=== PATIENT | female | born 1980 | race Caucasian/White ===

== ENCOUNTER 2019-03-30 09:55 | Emergency (ER) | payer OTHER ==
[~2019-03-30] VITALS: Ht 154.9 cm; Wt 59.4 kg
[2019-03-30 10:01] VITALS: BP 110/94
--- NOTE | 2019-03-30 10:05 | NUR ---
PT AMBULATED TO ER BED 07
--- NOTE | 2019-03-30 10:08 | NUR ---
ER AT BEDSIDE
--- NOTE | 2019-03-30 10:08 | NUR ---
38 Y/O F PRESENTS TO ER C/O SHORTNESS OF BREATH SINCE LAST NIGHT. PT IN TRIPOD POSITION. RESPIRATIONS ARE EVEN AND LABORED. BREATHE SOUNDS BILATERALLY WHEEZING THROUGHOUT. AUDIBLE WHEEZING NOTED. O2 SATURATION 99% ON RA. ALLERGIES: NKA MED HX: ASTHMA. SAFETY MEASURES IN PLACE. WAITING FOR ERMD TO EVALUATE PT.
--- NOTE | 2019-03-30 10:08 | NUR ---
RESPIRATORY CALLED FOR BREATHING TREATMENT
--- NOTE | 2019-03-30 10:12 | NUR ---
Mary valero in EDM - 03/30/19 at 1021 by ALIA2 ERMD AT BEDSIDE EVALUATING PT.
[2019-03-30] MEDS ORDERED: predniSONE 20 MG TAB PO ONE (10:15)
[2019-03-30] MEDS ORDERED: IPRATROPIUM 0.02% 0.5 MG/2.5 ML NEBU INH ONE (10:15)
[2019-03-30] MEDS ORDERED: ALBUTEROL 0.083% 2.5 MG/3 ML NEBU INH ONE (10:15)
--- NOTE | 2019-03-30 10:17 | NUR ---
ADMITTING DX: SOB HX: PATIENT STATES ASTHMA LOC AWAKE AND ALERT RESPONSIVE TO [employer] VERBAL COMMANDS HFW POSITION EDUCATION PROVIDED TO PATIENT WITH ACKNOWLEDGEMENT ON HHN THERAPY AND RESPIRATORY DRUGS FOREMENTIONED GIVEN ORDERED ENCOURAGED PATIENT FOR INTERMITTENT DEEP BREATHING DURING THERAPY PEAK FLOW METER: before 140 L after 430 L
--- NOTE | 2019-03-30 10:19 | NUR ---
RT AT BEDSIDE ADMINISTERING BREATHING TREATMENTS
[2019-03-30] MEDS ORDERED: NACL 0.9% 1,000 ML IV ONE ×2 (11:20)
--- NOTE | 2019-03-30 12:15 | NUR ---
PER DR DOUGLAS DC TO HOLD 2ND LITER OF NS
--- NOTE | 2019-03-30 12:18 | NUR ---
IV removed, catheter intact and site benign. Applied folded 4x4 gauze and tape to stop bleeding.
--- NOTE | 2019-03-30 12:22 | NUR ---
Patient discharged with v/s stable. Written and verbal after care instructions given and explained. Patient alert, oriented and verbalized understanding of instructions. Ambulatory with steady gait. All questions addressed prior to discharge. ID band removed. Patient advised to follow up with PMD. Rx of PRENDISONE, ALBUTEROL, QVAR given. Patient educated on indication of medication including possible reaction and side effects. Opportunity to ask questions provided and answered.
[2019-03-30 12:23] VITALS: BP 110/94
== END 2019-03-30 12:22 | disposition home or self-care (01) ==
LOC: MED 09:55
DX: J45.901 Unspecified asthma with (acute) exacerbation (principal)
CPT/HCPCS: 93005; 94640; 99283; J7030; J7512; J7613; 99284; J7644